=== PATIENT | female | born 1960 ===

== ENCOUNTER 2017-12-18 11:40 | Emergency (ER) | payer BC ==
[2017-12-18] MEDS ORDERED: Acetaminophen/HYDROcodone 325-10 MG Tab PO ONE (12:08)
[2017-12-18] MEDS ORDERED: Promethazine 25 MG Tab PO ONE (12:08)
--- NOTE | 2017-12-18 13:16 | EDM.PDOC ---
Scribed by Pamella Lara 12/18/17 1230 for Ronnei Singh MD ED HPI GENERAL MEDICAL PROBLEM - General Chief Complaint: Upper Extremity Injury/Pain Stated Complaint: ARM FRACTURE [id number] Time Seen by Provider: 12/18/17 12:02 Source of Information: Reports: Patient, RN, RN Notes Reviewed History Limitations: Reports: No Limitations - History of Present Illness INITIAL COMMENTS - FREE TEXT/NARRATIVE: Patient presents to ER with complaint of left forearm pain sustained when she fell and struck her left forearm on a metal bar. Denies any other injury. She has a history of remote fracture to the same area. Onset: Today Location: Reports: Upper Extremity, Left Quality: Reports: Ache Severity: Severe Improves with: Reports: None Worsens with: Reports: None Associated Symptoms: Reports: No Other Symptoms left lower arm Pain Score (Numeric/FACES): 6 - Related Data Allergies Allergy/AdvReac Type Severity Reaction Status Date / Time adhesive tape Allergy Rash Verified 12/18/17 12:11 Home Meds: Home Meds ALPRAZolam [Alprazolam] 0.5 mg PO DAILY PRN 12/18/17 [History] Clobetasol Propionate 1 applic TOP DAILY PRN 12/18/17 [History] FLUoxetine HCl [Fluoxetine HCl] 40 mg PO DAILY 12/18/17 [History] Zolpidem Tartrate 5 mg PO BEDTIME PRN 12/18/17 [History] Past Medical History Musculoskeletal History: Reports: Fracture (left forearm) Social & Family History - Family History Family Medical History: Noncontributory Review of Systems - Review of Systems Review Of Systems: ROS reveals no pertinent complaints other than HPI. ED EXAM, GENERAL - Physical Exam Exam: See Below Exam Limited By: No Limitations General Appearance: Alert, WD/WN, No Apparent Distress Head: Atraumatic, Normocephalic Respiratory/Chest: No Respiratory Distress Peripheral Pulses: 3+: Radial (L), Radial (R) Extremities: Normal Capillary Refill, Arm Pain (left ulnar forearm), Limited Range of Motion (left wrist and elbow secondary to pain). No: Joint Swelling Neurological: Alert, Oriented, No Motor/Sensory Deficits Psychiatric: Normal Mood Skin Exam: Warm, Dry, Intact, Normal Color, No Rash ED TRAUMA EXTREMITY PROCEDURES - Splinting Left Upper Extremity Splint Site: left upper extremity Pre-Procedure NV Status: Normal Post-Procedure NV Status: Normal Splint Material: Fiberglass Splint Design: Gutter Applied & Form Fitted By: Provider Provider Post-Splint Application NV Check: NV Status Normal, Good Position Complications: No Course - Vital Signs Last Recorded V/S: Last Vital Signs Temp 36.6 C 12/18/17 12:08 Pulse 78 12/18/17 12:08 Resp 20 12/18/17 12:08 BP 139/70 12/18/17 12:08 Pulse Ox 96 12/18/17 12:08 - Orders/Labs/Meds Meds: Medications Discontinued Medications Generic Name Dose Route Start Last Admin Trade Name Freq PRN Reason Stop Dose Admin Hydrocodone Bitart/Acetaminophen 1 tab 12/18/17 12:08 12/18/17 12:18 [place] 325-10 Mg PO 12/18/17 12:09 1 tab ONETIME ONE Administration Promethazine HCl 25 mg 12/18/17 12:08 12/18/17 12:18 Phenergan PO 12/18/17 12:09 25 mg ONETIME ONE Administration - Radiology Interpretation Free Text/Narrative:: X-ray left forearm: Acute distal ulnar fracture. Potential chronic fracture of the mid radius. See rad report. Departure - Departure Time of Disposition: 13:06 Disposition: Home, Self-Care 01 Condition: Good Clinical Impression: Closed fracture of distal end of ulna (alone) - Discharge Information Instructions: Forearm Fracture, [id number] Forms: ED Department Discharge Additional Instructions: Rx: Hydrocodone APAP 5mg/325mg *Do not drive while under the influence of this medication. Keep splint in place until seen by orthopedic surgeon. Call tomorrow morning to schedule an appointment at [facility] in [place]: [phone] Return to ER if any further concerns. I have read and agree with the documentation that has been completed regarding this visit. By signing this record, I attest that the documentation was completed in my physical presence and is an accurate record of the encounter.
== END 2017-12-18 13:29 | disposition home or self-care (01) ==
LOC: DL.ED 11:40
DX: S52.602A Unspecified fracture of lower end of left ulna, initial encounter for closed fracture (principal); W10.9XXA Fall (on) (from) unspecified stairs and steps, initial encounter; Y92.009 Unspecified place in unspecified non-institutional (private) residence as the place of occurrence of the external cause; Z91.09 Other allergy status, other than to drugs and biological substances
CPT/HCPCS: 29125; 73090-LT; 99283; A9270-GY

== ENCOUNTER 2024-01-24 06:04 | Day surgery (SDC) | payer BC ==
[2024-01-24] MEDS ORDERED: fentaNYL 100 MCG/2 ML SDV ONE (06:05)
[2024-01-24] MEDS ORDERED: Midazolam 1 MG/ML 2 ML SDV ONE (06:05)
[2024-01-24] MEDS ORDERED: fentaNYL 100 MCG/2 ML SDV IV ONE (06:05)
[2024-01-24] MEDS ORDERED: Midazolam 1 MG/ML 2 ML SDV IV ONE (06:05)
[2024-01-24] MEDS: Dextrose 5%-0.45% NaCl 1,000 ML IV SCH (06:57)
[2024-01-24] MEDS: fentaNYL 100 MCG/2 ML SDV IV ONE ×4 (07:00→07:10)
[2024-01-24] MEDS: Midazolam 1 MG/ML 2 ML SDV IV ONE ×6 (07:01→07:08)
== END 2024-01-24 08:47 | disposition home or self-care (01) ==
LOC: DL.ENDO 06:04
PROVIDERS: ATTEND Internal Medicine Gastroenterology
DX: Z12.11 Encounter for screening for malignant neoplasm of colon (principal); F41.8 Other specified anxiety disorders; L40.9 Psoriasis, unspecified; Z98.890 Other specified postprocedural states
CPT/HCPCS: J2250; J3010; J7799